=== PATIENT | male | born 1995 | race American Indian/Alaskan Native ===

== ENCOUNTER 2022-04-20 18:13 | Emergency (ER) | payer SELFPAY ==
[2022-04-20] MEDS ORDERED: IBUPROFEN 800 MG TAB PO ONE (21:26)
--- NOTE | 2022-04-20 23:43 | Emergency Department Report ---
ED General Adult HPI - General Chief complaint: Sore Throat Stated complaint: TONSIL PAIN Time Seen by Provider: 04/20/22 20:37 Source: patient Mode of arrival: Ambulatory Limitations: No Limitations - History of Present Illness Initial comments: Is a 26-year-old male who presents for sore throat x2 days. Patient denies fevers or chills no ear pain no cough no wheezing no stridor. Symptoms are exacerbated by swallowing. Symptoms are relieved by nothing tried. Patient states history of strep throat. Pain is rated at 4/10. Severity scale (0 -10): 7 - Related Data Home Medications Medication Instructions Recorded Confirmed Last Taken Loratadine (Nf) [Claritin] 10 mg PO DAILY 09/27/13 09/27/13 Unknown polyethylene glycoL 3350 [Miralax] 17 gm PO BID PRN 09/27/13 09/27/13 Unknown Previous Rx's Medication Instructions Recorded Last Taken Type Amoxicillin/K Clav Tab [Augmentin 1 tab PO BID #20 tablet 07/13/14 Unknown Rx 875MG] Ibuprofen [Motrin] 600 mg PO Q8H PRN #40 tablet 07/13/14 Unknown Rx Loratadine (Nf) [Claritin] 10 mg PO DAILY #30 tablet 07/13/14 Unknown Rx Promethazine /Codeine 5 ml PO Q6H PRN #150 udc 07/13/14 Unknown Rx [Phenergan/Codeine 6.25-10 mg/5 ml] Permethrin 5% [Acticin 5% CREAM] 1 applicatio TP ONCE #1 tube 05/12/15 Unknown Rx hydrOXYzine HCL [Atarax] 25 mg PO Q8H #15 tablet 05/12/15 Unknown Rx Fexofenadine/Pseudoephedrine 1 each PO BID PRN #24 tab 04/20/22 Unknown Rx [Pricila-D 12 Hour Tablet] Ibuprofen [Motrin 800 MG tab] 800 mg PO Q8HR PRN #30 tablet 04/20/22 Unknown Rx Allergies Allergy/AdvReac Type Severity Reaction Status Date / Time No Known Allergies Allergy Unverified 09/27/13 08:37 ED Review of Systems ROS: Stated complaint: TONSIL PAIN Other details as noted in HPI Constitutional: malaise Eyes: denies: eye pain, eye discharge, vision change ENT: throat pain. denies: ear pain, congestion Respiratory: denies: cough, shortness of breath, wheezing Cardiovascular: denies: chest pain, palpitations Endocrine: no symptoms reported Gastrointestinal: denies: abdominal pain, nausea, diarrhea Genitourinary: denies: urgency, dysuria Musculoskeletal: denies: back pain, joint swelling, arthralgia Skin: denies: rash, lesions Neurological: denies: headache, weakness, paresthesias Psychiatric: denies: anxiety, depression Hematological/Lymphatic: denies: easy bleeding, easy bruising ED Past Medical Hx - Past Medical History Previous Medical History?: No - Surgical History Past Surgical History?: Yes Hx Appendectomy: Yes - Social History Smoking Status: Never Smoker Substance Use Type: None, Non Opiate Pain - Medications Home Medications: Home Medications Medication Instructions Recorded Confirmed Last Taken Type Loratadine (Nf) [Claritin] 10 mg PO DAILY 09/27/13 09/27/13 Unknown History polyethylene glycoL 3350 [Miralax] 17 gm PO BID PRN 09/27/13 09/27/13 Unknown History Amoxicillin/K Clav Tab [Augmentin 1 tab PO BID #20 tablet 07/13/14 Unknown Rx 875MG] Ibuprofen [Motrin] 600 mg PO Q8H PRN #40 tablet 07/13/14 Unknown Rx Loratadine (Nf) [Claritin] 10 mg PO DAILY #30 tablet 07/13/14 Unknown Rx Promethazine /Codeine 5 ml PO Q6H PRN #150 udc 07/13/14 Unknown Rx [Phenergan/Codeine 6.25-10 mg/5 ml] Permethrin 5% [Acticin 5% CREAM] 1 applicatio TP ONCE #1 tube 05/12/15 Unknown Rx hydrOXYzine HCL [Atarax] 25 mg PO Q8H #15 tablet 05/12/15 Unknown Rx Fexofenadine/Pseudoephedrine 1 each PO BID PRN #24 tab 04/20/22 Unknown Rx [Pricila-D 12 Hour Tablet] Ibuprofen [Motrin 800 MG tab] 800 mg PO Q8HR PRN #30 tablet 04/20/22 Unknown Rx ED Physical Exam - General Limitations: No Limitations General appearance: alert, in no apparent distress - Head Head exam: Present: normocephalic, normal inspection - Eye Eye exam: Present: PERRL, EOMI Pupils: Present: normal accommodation - ENT ENT exam: Present: normal exam, mucous membranes moist, TM's normal bilaterally, normal external ear exam - Expanded ENT Exam Expanded Throat exam: Positive: tonsillar erythema, other (Uvula midline no lesions no exudate airway patent no stridor no wheezing). Negative: tonsillomegaly, tonsillar exudate, R peritonsillar mass, L peritonsillar mass - Neck Neck exam: Present: normal inspection, full ROM. Absent: tenderness, lymphadenopathy - Respiratory Respiratory exam: Present: normal lung sounds bilaterally. Absent: respiratory distress, wheezes, chest wall tenderness - Cardiovascular Cardiovascular Exam: Present: regular rate, normal rhythm, normal heart sounds. Absent: systolic murmur, diastolic murmur, rubs, gallop - GI/Abdominal GI/Abdominal exam: Present: soft, normal bowel sounds. Absent: distended, tenderness - Rectal Rectal exam: Present: deferred, normal inspection - Extremities Exam Extremities exam: Present: normal inspection, full ROM, normal capillary refill - Back Exam Back exam: Present: normal inspection, full ROM. Absent: CVA tenderness (R), CVA tenderness (L) - Neurological Exam Neurological exam: Present: alert, oriented X3, CN II-XII intact - Psychiatric Psychiatric exam: Present: normal affect, normal mood - Skin Skin exam: Present: warm, dry, intact, normal color. Absent: rash ED Course Vital Signs 04/20/22 18:47 Temperature 99.4 F Pulse Rate 73 Respiratory 18 Rate Blood Pressure 126/66 O2 Sat by Pulse 100 Oximetry ED Medical Decision Making - EKG Data Interpretation: subendocardial ischemia - Medical Decision Making Is likely viral pharyngitis. Plan DC to home, NSAIDs as needed pain, continue to hydrate, follow-up with primary care doctor in 2 to 3 days. Return to emergency department should symptoms worsen. Critical care attestation.: If time is entered above; I have spent that time in minutes in the direct care of this critically ill patient, excluding procedure time. ED Disposition Clinical Impression: Pharyngitis Qualifiers: Pharyngitis/tonsillitis etiology: unspecified etiology Qualified Code(s): J02.9 - Acute pharyngitis, unspecified Acute pharyngitis Qualifiers: Pharyngitis/tonsillitis etiology: unspecified etiology Qualified Code(s): J02.9 - Acute pharyngitis, unspecified Disposition: 01 HOME / SELF CARE / HOMELESS Is pt being admited?: No Does the pt Need Aspirin: No Condition: Stable Instructions: Pharyngitis, [id number] Additional Instructions: Take medication as prescribed, hydrate as directed, follow-up with your doctor in 2 to 3 days. Return to emergency department should symptoms worsen. Prescriptions: Fexofenadine/Pseudoephedrine [Pricila-D 12 Hour Tablet] 1 each PO BID PRN #24 tab PRN Reason: sinus congestion Ibuprofen [Motrin 800 MG tab] 800 mg PO Q8HR PRN #30 tablet PRN Reason: pain fever Referrals: NEFTALI RAMOS MD [Staff Physician] - 3-5 Days Forms: Work/School Release Form(ED) Time of Disposition: 23:47
[2022-04-21 00:05] VITALS: BP 124/70
== END 2022-04-21 00:27 | disposition home or self-care (01) ==
LOC: ED 18:13
DX: J02.9 Acute pharyngitis, unspecified (principal); Z90.89 Acquired absence of other organs
CPT/HCPCS: 99282

== ENCOUNTER 2022-04-22 20:37 | Emergency (ER) | payer SELFPAY ==
[2022-04-23] MEDS ORDERED: oxyCODONE /ACETAMINOPHEN 5-325MG TAB PO ONE (00:42)
[2022-04-23] MEDS ORDERED: CYCLOBENZAPRINE 10 MG TAB PO ONE (00:42)
[2022-04-23] MEDS ORDERED: KETOROLAC 10 MG TAB PO ONE (00:42)
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
[2022-04-23 01:46] VITALS: BP 136/76
== END 2022-04-23 01:33 | disposition home or self-care (01) ==
LOC: ED 20:37
DX: M54.50 Low back pain, unspecified (principal); M54.2 Cervicalgia; V89.2XXA Person injured in unspecified motor-vehicle accident, traffic, initial encounter; Y93.89 Activity, other specified; Y92.89 Other specified places as the place of occurrence of the external cause; Y99.8 Other external cause status
CPT/HCPCS: 99282